=== PATIENT | male | born 1980 | race Caucasian/White ===

== ENCOUNTER 2017-04-16 05:00 | Emergency (ER) | payer BC ==
[2017-04-16 05:48] LABS: Basophils # (A) 0.1 k/uL (0-0.2); Basophils % (A) 1 %; CH 30.8; CHCM 32.7; Eosinophils # (A) 0.2 k/uL (0-0.7); Eosinophils % (A) 2 %; HCT 49.6 % (39.0-53.0); HGB 15.6 gm/dL (13.0-17.5); Luc # (Auto) 0.17; Luc % (Auto) 2; Lymphocytes # (A) 1.7 k/uL (1.0-4.8); Lymphocytes % (A) 23 %; MCH 29.9 pg (25.0-35.0); MCHC 31.5 g/dL (31.0-37.0); MCV 94.8 fL (80.0-100.0); Monocytes # (A) 0.5 k/uL (0-1.0); Monocytes % (A) 7 %; Neutrophils % (A) 66 %; RBC 5.23 m/uL (4.30-5.90); RDW 14.6 % (11.5-15.5); WBC 7.7 k/uL (3.8-10.6); WBC (Perox) 7.85
[2017-04-16 06:00] LABS: ALT 46 U/L (21-72); AST 27 U/L (17-59); Alkaline Phosphatase 48 U/L (38-126); Anion Gap 11 mmol/L; Blood Urea Nitrogen 14 mg/dL (9-20); Calcium 9.6 mg/dL (8.4-10.2); Carbon Dioxide 27 mmol/L (22-30); Chloride 104 mmol/L (98-107); Glucose 98 mg/dL (74-99); Magnesium 1.8 mg/dL (1.6-2.3); Non-African American GFR(MDRD) >60 (>60 ml/min/1.73 sqM); Sodium 142 mmol/L (137-145); Total Bilirubin 0.8 mg/dL (0.2-1.3)
[2017-04-16 06:07] LABS: Creatine Kinase 97 U/L (55-170)
--- NOTE | 2017-04-16 06:12 | ED ---
General Adult HPI - General Source: patient, family, RN notes reviewed, old records reviewed Mode of arrival: ambulatory Limitations: no limitations <Devon Page - Last Filed: 04/16/17 07:11> <Devon Jackson - Last Filed: 04/16/17 08:09> - General Chief complaint: Chest Pain Stated complaint: FLACO Time Seen by Provider: 04/16/17 05:02 - History of Present Illness Initial comments: this is a 28-year-old male to the ER for evaluation of chest pain. Anterior heaviness. Shortness of breath. Cough and congestion. Patient states he feels a bronchitis. But worse. Patient is no history of heart disease, nonsmoker normal blood pressure high cholesterol. No diabetes. No family history of heart disease. Patient woke up symptoms are worse today. No fevers cough congestion, no travel history. Patient continues to chest pain currently (Devon Page) - Related Data Previous Rx's Medication Instructions Recorded Albuterol Nebulized (Conc) 2.5 mg INHALATION QID #30 neb 04/16/17 [Ventolin Nebulized (Conc)] Allergies Allergy/AdvReac Type Severity Reaction Status Date / Time No Known Allergies Allergy Verified 04/16/17 08:00 Review of Systems ROS Other: All systems not noted in ROS Statement are negative. <Devon Page - Last Filed: 04/16/17 07:11> ROS Other: All systems not noted in ROS Statement are negative. <Devon Jackson - Last Filed: 04/16/17 08:09> ROS Statement: Those systems with pertinent positive or pertinent negative responses have been documented in the HPI. Past Medical History Past Medical History: No Reported History History of Any Multi-Drug Resistant Organisms: None Reported Additional Past Surgical History / Comment(s): sinus Past Psychological History: No Psychological Hx Reported Smoking Status: Never smoker Past Alcohol Use History: Occasional Past Drug Use History: None Reported <Devon Page - Last Filed: 04/16/17 07:11> General Exam Limitations: no limitations General appearance: alert, in no apparent distress Head exam: Present: atraumatic, normocephalic, normal inspection Eye exam: Present: normal appearance, PERRL, EOMI. Absent: scleral icterus, conjunctival injection, periorbital swelling ENT exam: Present: normal exam, mucous membranes moist Neck exam: Present: normal inspection. Absent: tenderness, meningismus, lymphadenopathy Respiratory exam: Present: normal lung sounds bilaterally. Absent: respiratory distress, wheezes, rales, rhonchi, stridor Cardiovascular Exam: Present: regular rate, normal rhythm, normal heart sounds. Absent: systolic murmur, diastolic murmur, rubs, gallop, clicks GI/Abdominal exam: Present: soft, normal bowel sounds. Absent: distended, tenderness, guarding, rebound, rigid Extremities exam: Present: normal inspection, full ROM, normal capillary refill. Absent: tenderness, pedal edema, joint swelling, calf tenderness Back exam: Present: normal inspection Neurological exam: Present: alert, oriented X3, CN II-XII intact Psychiatric exam: Present: normal affect, normal mood Skin exam: Present: warm, dry, intact, normal color. Absent: rash <Devon Page - Last Filed: 04/16/17 07:11> Vital Signs 04/16/17 04/16/17 04/16/17 05:02 07:15 07:23 Temperature 98.8 F Pulse Rate 84 78 80 Respiratory 18 18 Rate Blood Pressure 154/81 134/80 O2 Sat by Pulse 100 98 Oximetry 04/16/17 07:37 Temperature Pulse Rate 80 Respiratory Rate Blood Pressure O2 Sat by Pulse Oximetry Medical Decision Making - Lab Data Result diagrams: 04/16/17 05:23 04/16/17 05:23 <Devon Page - Last Filed: 04/16/17 07:11> - Lab Data Result diagrams: 04/16/17 05:23 04/16/17 05:23 <Devon Jackson - Last Filed: 04/16/17 08:09> - Lab Data Lab Results 04/16/17 04/16/17 04/16/17 Range/Units 05:23 05:23 05:23 WBC 7.7 (3.8-10.6) k/uL RBC 5.23 (4.30-5.90) m/uL Hgb 15.6 (13.0-17.5) gm/dL Hct 49.6 (39.0-53.0) % MCV 94.8 (80.0-100.0) fL MCH 29.9 (25.0-35.0) pg MCHC 31.5 (31.0-37.0) g/dL RDW 14.6 (11.5-15.5) % Plt Count 204 (150-450) k/uL Neutrophils % 66 % Lymphocytes % 23 % Monocytes % 7 % Eosinophils % 2 % Basophils % 1 % Neutrophils # 5.0 (1.3-7.7) k/uL Lymphocytes # 1.7 (1.0-4.8) k/uL Monocytes # 0.5 (0-1.0) k/uL Eosinophils # 0.2 (0-0.7) k/uL Basophils # 0.1 (0-0.2) k/uL PT (9.0-12.0) sec INR (<1.2) APTT (22.0-30.0) sec D-Dimer (<0.60) mg/L FEU Sodium 142 (137-145) mmol/L Potassium 4.0 (3.5-5.1) mmol/L Chloride 104 (98-107) mmol/L Carbon Dioxide 27 (22-30) mmol/L Anion Gap 11 mmol/L BUN 14 (9-20) mg/dL Creatinine 1.00 (0.66-1.25) mg/dL Est GFR (MDRD) Af Amer >60 (>60 ml/min/1.73 sqM) Est GFR (MDRD) Non-Af >60 (>60 ml/min/1.73 sqM) Glucose 98 (74-99) mg/dL Calcium 9.6 (8.4-10.2) mg/dL Magnesium 1.8 (1.6-2.3) mg/dL Total Bilirubin 0.8 (0.2-1.3) mg/dL AST 27 (17-59) U/L ALT 46 (21-72) U/L Alkaline Phosphatase 48 (38-126) U/L Total Creatine Kinase 97 (55-170) U/L CK-MB (CK-2) 0.6 (0.0-2.4) ng/mL CK-MB (CK-2) Rel Index 0.6 Troponin I <0.012 (0.000-0.034) ng/mL Total Protein 7.0 (6.3-8.2) g/dL Albumin 4.3 (3.5-5.0) g/dL Lipase 98 (23-300) U/L 04/16/17 Range/Units 05:23 WBC (3.8-10.6) k/uL RBC (4.30-5.90) m/uL Hgb (13.0-17.5) gm/dL Hct (39.0-53.0) % MCV (80.0-100.0) fL MCH (25.0-35.0) pg MCHC (31.0-37.0) g/dL RDW (11.5-15.5) % Plt Count (150-450) k/uL Neutrophils % % Lymphocytes % % Monocytes % % Eosinophils % % Basophils % % Neutrophils # (1.3-7.7) k/uL Lymphocytes # (1.0-4.8) k/uL Monocytes # (0-1.0) k/uL Eosinophils # (0-0.7) k/uL Basophils # (0-0.2) k/uL PT 9.8 (9.0-12.0) sec INR 1.0 (<1.2) APTT 23.5 (22.0-30.0) sec D-Dimer 0.23 (<0.60) mg/L FEU Sodium (137-145) mmol/L Potassium (3.5-5.1) mmol/L Chloride (98-107) mmol/L Carbon Dioxide (22-30) mmol/L Anion Gap mmol/L BUN (9-20) mg/dL Creatinine (0.66-1.25) mg/dL Est GFR (MDRD) Af Amer (>60 ml/min/1.73 sqM) Est GFR (MDRD) Non-Af (>60 ml/min/1.73 sqM) Glucose (74-99) mg/dL Calcium (8.4-10.2) mg/dL Magnesium (1.6-2.3) mg/dL Total Bilirubin (0.2-1.3) mg/dL AST (17-59) U/L ALT (21-72) U/L Alkaline Phosphatase (38-126) U/L Total Creatine Kinase (55-170) U/L CK-MB (CK-2) (0.0-2.4) ng/mL CK-MB (CK-2) Rel Index Troponin I (0.000-0.034) ng/mL Total Protein (6.3-8.2) g/dL Albumin (3.5-5.0) g/dL Lipase (23-300) U/L Disposition <Devon Page - Last Filed: 04/16/17 07:11> Time of Disposition: 08:09 <Devon Jackson - Last Filed: 04/16/17 08:09> Clinical Impression: Acute bronchitis Disposition: HOME SELF-CARE Condition: Good Instructions: Acute Bronchitis (ED) Prescriptions: Albuterol Nebulized (Conc) [Ventolin Nebulized (Conc)] 2.5 mg INHALATION QID # 30 neb Referrals: Albaro Fam III, MD [Primary Care Provider] - 1-2 days
[2017-04-16 06:14] LABS: Partial Thromboplastin Time 23.5 sec (22.0-30.0); Prothrombin Time 9.8 sec (9.0-12.0)
--- NOTE | 2017-04-16 06:17 | XR ---
EXAM: XR Chest, 2 Views CLINICAL HISTORY: Reason: Chest Pain TECHNIQUE: Frontal and lateral views of the chest. COMPARISON: No relevant prior studies available. FINDINGS: Lungs: Unremarkable. No consolidation. Pleural space: Unremarkable. No pneumothorax. Heart: Unremarkable. No cardiomegaly. Mediastinum: Unremarkable. Bones/joints: Unremarkable. IMPRESSION: No acute findings radiographically.
[2017-04-16 06:21] LABS: Creatine Kinase MB 0.6 ng/mL (0.0-2.4); Troponin I <0.012 ng/mL (0.000-0.034)
[2017-04-16] MEDS ORDERED: KETOROLAC 30 MG/ML 1 ML VIAL IVP STA (06:27)
[2017-04-16] MEDS ORDERED: IPRATROPIUM-ALBUTEROL 3 ML NEB INHALATION STA (06:27)
[2017-04-16 08:17] VITALS: BP 132/83; PULSE 75; RESP 16; TEMP 97
== END 2017-04-16 08:10 | disposition home or self-care (01) ==
LOC: EC 05:00
DX: J20.9 Acute bronchitis, unspecified (principal)
CPT/HCPCS: 36415; 94640; 93005; 85379; 80053; 82550; 82553; 83690; 83735; 84484; 85025; 85610; 85730; 71020; 99285; 96374; J1885

== ENCOUNTER → 2017-04-22 | Outpatient (CLI) | payer BC ==
--- NOTE | 2017-04-22 15:35 | CT ---
EXAMINATION TYPE: CT angio chest DATE OF EXAM: 04/22/2017 COMPARISON: NONE HISTORY: Labored breathing x [address] DLP: 536.00 mGycm Automated exposure control for dose reduction was used. CONTRAST: CTA scan of the thorax is performed with IV Contrast, patient injected with 68 mL of Omnipaque 350, p ulmonary embolism protocol. MIP images are created and reviewed. 3D reconstructed images are create d on an independent workstation and reviewed. FINDINGS: LUNGS: The lungs are remarkable for 2 numerous to count small foci of airspace disease, tree-in-bud a ppearance in the right lower lobe. There is associated bronchial wall thickening with bronchial narro wing. There is no concerning parenchymal mass or nodule identified. There is no pleural effusion or pneumothorax seen. The tracheobronchial tree is patent. AORTA: No additional significant abnormality is seen. MEDIASTINUM: There is satisfactory enhancement of the pulmonary artery and its branches, there is no CT evidence for pulmonary embolism. There are no greater than 1 cm hilar or mediastinal lymph nodes. No pericardial effusion is seen. OTHER: No additional significant abnormality is seen. IMPRESSION: FINDINGS SUGGEST RIGHT LOWER LOBE PNEUMONIA. CONSIDER ASPIRATION AND ATYPICAL INFECTIONS, CORRELATE P ATIENT HISTORY. FOLLOW-UP TO RESOLUTION.
== END | disposition home or self-care (01) ==
LOC: RADCTMAIN 14:42
PROVIDERS: ATTEND Family Medicine
DX: R05 Cough (principal); J18.9 Pneumonia, unspecified organism
CPT/HCPCS: 71275; Q9967

== ENCOUNTER 2018-04-22 11:38 | Emergency (ER) | payer BC ==
[2018-04-22 11:44] VITALS: RESP 18
[2018-04-22 12:13] LABS: Basophils % (A) 1 %; Eosinophils # (A) 0.2 k/uL (0-0.7); Eosinophils % (A) 3 %; HCT 45.4 % (39.0-53.0); HGB 15.5 gm/dL (13.0-17.5); Lymphocytes # (A) 2.4 k/uL (1.0-4.8); Lymphocytes % (A) 34 %; MCH 31.3 pg (25.0-35.0); MCHC 34.2 g/dL (31.0-37.0); MCV 91.6 fL (80.0-100.0); Mean Platelet Volume 7.4; Monocytes # (A) 0.4 k/uL (0-1.0); Monocytes % (A) 6 %; Neutrophils # (A) 3.8 k/uL (1.3-7.7); Neutrophils % (A) 55 %; Platelet Count 198 k/uL (150-450); RBC 4.96 m/uL (4.30-5.90); RDW 13.2 % (11.5-15.5); WBC 6.9 k/uL (3.8-10.6)
[2018-04-22 12:20] LABS: Partial Thromboplastin Time 24.9 sec (22.0-30.0); Prothrombin Time 10.6 sec (9.0-12.0)
[2018-04-22 12:26] LABS: ALT 59 U/L (21-72); AST 32 U/L (17-59); Albumin 4.2 g/dL (3.5-5.0); Alkaline Phosphatase 41 U/L (38-126); Anion Gap 8 mmol/L; Blood Urea Nitrogen 13 mg/dL (9-20); Carbon Dioxide 27 mmol/L (22-30); Chloride 106 mmol/L (98-107); Glucose 112 mg/dL (74-99); Sodium 141 mmol/L (137-145); Total Bilirubin 1.7 mg/dL (0.2-1.3); Total Protein 7.2 g/dL (6.3-8.2)
[2018-04-22 12:36] LABS: Creatine Kinase 78 U/L (55-170)
[2018-04-22 12:49] LABS: Creatine Kinase MB 0.3 ng/mL (0.0-2.4); Troponin I <0.012 ng/mL (0.000-0.034)
--- NOTE | 2018-04-22 12:56 | XR ---
EXAMINATION TYPE: XR chest 2V DATE OF EXAM: 04/22/2018 COMPARISON: 04/16/2017 HISTORY: Chest pain TECHNIQUE: Frontal and lateral views of the chest are obtained. FINDINGS: There is no focal air space opacity. No evidence for pneumothorax. No pleural effusion. The cardiac silhouette size is within normal limits. The osseous structures are grossly intact. IMPRESSION: 1. No acute cardiopulmonary process.
[2018-04-22] MEDS ORDERED: SODIUM CHLORIDE 0.9% 1,000 ML IV STA (14:02)
[2018-04-22] MEDS ORDERED: MAG HYDROX/AL HYDROX/SIMETH 30 ML, HYOSCYAMINE ELIXIR 10 ML, CIMETIDINE HCL 300 MG PO STA ×3 (14:02)
--- NOTE | 2018-04-22 14:02 | ED ---
Chest Pain HPI - General Chief Complaint: Chest Pain Stated Complaint: chest pain Time Seen by Provider: 04/22/18 13:08 Source: patient, RN notes reviewed, old records reviewed Mode of arrival: wheelchair Limitations: no limitations - History of Present Illness Initial Comments: This is a 37-year-old male to ER for evaluation of chest pain, chest pain substernal that occurred after getting angry at his kids earlier today. Patient has no history of heart disease. No family history, no high blood pressure normal cholesterol no diabetes. Nonsmoker. Patient states that a couple recent twinges of chest pain substernal radiating pain in the last few weeks, related to stress. Patient also states is at times the pain is burning, denies any shortness of breath or diaphoresis. MD Complaint: chest pain -: hour(s) Onset: during rest, other (With stress) Pain Location: substernal Pain Radiation: other (Outward) Severity: mild Severity scale (1-10): 3 Quality: tightness Consistency: constant Improves With: nothing Worsens With: nothing Anginal Symptoms: other (None) Other Symptoms: other (None) Treatments Prior to Arrival: none - Related Data Home Medications Medication Instructions Recorded Confirmed Acid Reflux Otc (Unknown) 1 tab PO DAILY 04/22/18 04/22/18 Garlic 1 tab PO DAILY 04/22/18 04/22/18 L.acidoph,Paracasei, B.lactis 1 cap PO DAILY 04/22/18 04/22/18 [Probiotic] Multivitamins, Thera [Multivitamin 1 tab PO DAILY 04/22/18 04/22/18 (formulary)] [place]-3 Fatty Acids/Fish Oil [Fish 1 cap PO DAILY 04/22/18 04/22/18 Oil 1,000 mg Softgel] Allergies Allergy/AdvReac Type Severity Reaction Status Date / Time No Known Allergies Allergy Verified 04/22/18 12:58 Review of Systems ROS Statement: Those systems with pertinent positive or pertinent negative responses have been documented in the HPI. ROS Other: All systems not noted in ROS Statement are negative. Past Medical History Past Medical History: No Reported History History of Any Multi-Drug Resistant Organisms: None Reported Additional Past Surgical History / Comment(s): sinus Past Psychological History: No Psychological Hx Reported Smoking Status: Never smoker Past Alcohol Use History: Daily, Occasional Past Drug Use History: None Reported General Exam Limitations: no limitations General appearance: alert, in no apparent distress Head exam: Present: atraumatic, normocephalic, normal inspection Eye exam: Present: normal appearance, PERRL, EOMI. Absent: scleral icterus, conjunctival injection, periorbital swelling ENT exam: Present: normal exam, mucous membranes moist Neck exam: Present: normal inspection. Absent: tenderness, meningismus, lymphadenopathy Respiratory exam: Present: normal lung sounds bilaterally. Absent: respiratory distress, wheezes, rales, rhonchi, stridor Cardiovascular Exam: Present: regular rate, normal rhythm, normal heart sounds. Absent: systolic murmur, diastolic murmur, rubs, gallop, clicks GI/Abdominal exam: Present: soft, normal bowel sounds. Absent: distended, tenderness, guarding, rebound, rigid Extremities exam: Present: normal inspection, full ROM, normal capillary refill. Absent: tenderness, pedal edema, joint swelling, calf tenderness Back exam: Present: normal inspection Neurological exam: Present: alert, oriented X3, CN II-XII intact Psychiatric exam: Present: normal affect, normal mood Skin exam: Present: warm, dry, intact, normal color. Absent: rash Course Vital Signs 04/22/18 04/22/18 04/22/18 11:42 13:02 14:30 Temperature 98.0 F Pulse Rate 97 78 65 Respiratory 18 18 18 Rate Blood Pressure 140/82 132/81 132/86 O2 Sat by Pulse 100 98 95 Oximetry - Reevaluation(s) Reevaluation #1: 04/22/18 14:22 Medical record and prior ER visits are reviewed Patient does have prior stress test which was normal Reevaluation #2: 04/22/18 15:45 Patient still has episodic chest pain here in the ER but he does have no cardiac risk factors and CT is negative Chest Pain MDM - MDM Plan I male the ER for evaluation of atypical chest pain. EKG troponin and CTA chest negative for acute disease. At this time patient will follow-up with primary care for further evaluation of chest pain Disposition Clinical Impression: Chest pain Disposition: HOME SELF-CARE Condition: Good Instructions: Chest Pain (ED) Is patient prescribed a controlled substance at d/c from ED?: No Referrals: Albaro Fam III, MD [Primary Care Provider] - 1-2 days
--- NOTE | 2018-04-22 15:28 | CT ---
EXAMINATION TYPE: CT angio chest DATE OF EXAM: 04/22/2018 COMPARISON: 04/22/2017 HISTORY: 37-year-old male Burning sensation in chest TECHNIQUE: Contiguous axial scanning of the chest performed with IV Contrast, patient injected with 1 00 mL of Isovue 370. Coronal/sagittal MIP reconstructions performed. CT DLP: 457.2 mGycm Automated exposure control for dose reduction was used. FINDINGS: Heart normal size without pericardial effusion. Aorta normal caliber with conventional branching anatomy. No thoracic lymphadenopathy by CT size criteria. There is suboptimal opacification of the pulmonary arterial system causing heterogeneity of the pulmo nary arteries. Within this limitation, no definite pulmonary embolus is seen. Evaluation of the lung shows mild diffuse bronchial wall thickening without consolidation or pleural effusion. Visualized upper abdomen show some nonspecific 1.1 cm nodularity of the left adrenal gland, statistic ally representing a benign adrenal adenoma. Consider a one-year follow-up to reassess. Some scattered borderline-sized upper abdominal lymph nodes are noted measuring up to 8 mm. Bones: Small endplate Schmorl's nodes in the lower thoracic spine. IMPRESSION: 1. LIMITED ASSESSMENT DUE TO SLIGHTLY SUBOPTIMAL CONTRAST BOLUS. NO DEFINITE PULMONARY EMBOLUS. 2. NO ACUTE PULMONARY PROCESS. 3. POSSIBLE 1.1 CM LEFT ADRENAL ADENOMA. CONSIDER A ONE-YEAR FOLLOW-UP TO REASSESS.
[2018-04-22 16:10] VITALS: BP 122/80; PULSE 63; TEMP 97.8
== END 2018-04-22 16:09 | disposition home or self-care (01) ==
LOC: EC 11:38
DX: R07.2 Precordial pain (principal); Z79.899 Other long term (current) drug therapy
CPT/HCPCS: 36415; 93005; 80053; 82550; 82553; 83735; 84484; 85025; 85610; 85730; 71046; 71275; 99285; 96360; 96361; Q9967

== ENCOUNTER → 2018-05-11 | Outpatient (CLI) | payer BC ==
--- NOTE | 2018-05-11 11:26 | NM ---
EXAMINATION TYPE: NM stress cardiolite complete DATE OF EXAM: 05/11/2018 COMPARISON: Chest CTA April 22, 2018 HISTORY: Family history of coronary artery disease presents with chest and epigastric pain, difficult y in breathing and palpitations. TECHNIQUE: After the intravenous administration of 10.2 mCi Tc 99m Sestamibi - Rest images obtained 60 minutes post injection. The patient exercised using a KEY protocol and 1 minute prior to peak exercise was injected with 25.5 mCi Tc 99m Sestamibi - Stress images obtained 10 minutes post injecti on. FINDINGS: Targeted heart rate was achieved during performance of the study. Review of stress and rest SPECT jadon ges demonstrates no distinct perfusion abnormality. Gated analysis shows normal wall motion with an estimated left ventricular ejection fraction of 60 %. IMPRESSION: No scintigraphic evidence for reversible ischemia
--- NOTE | 2018-05-11 11:27 | EST ---
EXERCISE STRESS AGE: 37 SEX: M HT: 5'7: WT: 200 PROTOCOL: Cardiolite Leonel Stress Test STAGE: 4 DURATION OF EXERCISE: 10:30 HEART RATE REST: 70 BLOOD PRESSURE REST: 145/90 MAXIMUM HEART RATE ACHIEVED: 162 MAXIMUM BLOOD PRESSURE: 229/86 85% MPHR: 154 100% MPHR: 181 METS: 12.1 INDICATIONS: Chest pain. CLINICAL INFORMATION: Baseline EKG revealed normal sinus rhythm without significant ST-T changes. Patient walked for 10 minutes 30 seconds, achieved a maximal heart rate of 162 beats per minute which is well above 85% of predicted maximal. He developed fatigue and shortness of breath, but did not have any angina or arrhythmia. EKG did not reveal any ST-segment changes to indicate ischemia. Rare PVCs were noted. By EKG criteria, this is a negative stress test with good exercise capacity. The nuclear scan results which are more pertinent, will be reported by the radiologist. ISABEL / SURESHN: [id number] /
--- NOTE | 2018-05-11 11:28 | US ---
EXAMINATION TYPE: US abdomen complete DATE OF EXAM: 05/11/2018 COMPARISON: CTA chest April 22, 2018 CLINICAL HISTORY: R10.13. Generalized not feeling well.. Difficult and limited exam due to overlying bowel gas . Epigastric pain. EXAM MEASUREMENTS: Liver Length: 14.2 cm Gallbladder Wall: 0.2 cm CBD: 0.4 cm Spleen: 9.2 cm Right Kidney: 11.1 x 5.2 x 5.5 cm Left Kidney: 10.1 x 5.3 x 5.1 cm Pancreas: Obscured by bowel gas Liver: Heterogeneous Gallbladder: wnl Evidence for sonographic Coles's sign: No CBD: wnl Spleen: wnl Right Kidney: No hydronephrosis or masses seen Left Kidney: No hydronephrosis or masses seen Upper IVC: wnl Abd Aorta: Proximal portion obscured. wnl as visualized. The visualized liver is heterogeneous felt to reflect diffuse fatty infiltration. Evaluation for foca l masses is suboptimal due to the heterogeneity. The intrahepatic portion of the IVC and proximal abd ominal aorta are within normal limits. There is no evidence of cholelithiasis. Common bile duct is unremarkable. The pancreas is suboptimally evaluated on images saved secondary to shadowing from ove rlying bowel gas per technologist.. The spleen is unremarkable. Kidneys are symmetric and free of h ydronephrosis. No renal lesions are seen. IMPRESSION: Suboptimal study without acute finding seen to account for patient's symptoms. Probable m ild diffuse fatty infiltration of liver is noted.
== END | disposition home or self-care (01) ==
LOC: RADNMMAIN 08:10
PROVIDERS: ATTEND Family Medicine
DX: R10.13 Epigastric pain (principal); R07.9 Chest pain, unspecified
CPT/HCPCS: 93017; 76700; 78452; A9500